=== PATIENT | male | born 1960 | race Caucasian/White ===

== ENCOUNTER → 2024-06-11 | Outpatient (CLI) | payer MEDICARE, MEDICAID, SELFPAY ==
[2024-06-11 12:35] VITALS: PULSE 85; PULSE 86; PULSE 92; PULSE 96; PULSE 97; PULSE 99; O2SAT 92; O2SAT 93; O2SAT 94
--- NOTE | 2024-06-14 12:35 | PCM.PSN.6M ---
PSN 6 Minute Walk Test 6 Minute Walk Test 6 Minute Walk Test: 6 Minute Walk Test PSN:6-Minute Walk Test Start: 06/11/24 12:35 Freq: Status: Active Protocol: [id number] Document 06/11/24 12:35 FERNANDOROWDY (Rec: 06/11/24 12:38 [email or web address] [id number]) 6 Minute Walk Test Date Performed 06/11/24 Time Performed 12:20 Height 5 ft 5 in Weight: 230 lb Weight in Pounds 230.[address]: Phillip Ramirez Assistive device None used: Pre-test Oxygen Delivery Room Air Method Pulse Ox (%) 92 Pulse Rate (60-100 86 beats/min) Dyspnea Galindo Scale ( 0.5 0-10) Exertion Galindo Scale 6 (6-20) 1st minute Oxygen Delivery Room Air Method Pulse Ox (%) 94 Pulse Rate (60-100 92 beats/min) 2nd minute Oxygen Delivery Room Air Method Pulse Ox (%) 93 Pulse Rate (60-100 96 beats/min) 3rd minute Oxygen Delivery Room Air Method Pulse Ox (%) 93 Pulse Rate (60-100 97 beats/min) 4th minute Oxygen Delivery Room Air Method Pulse Ox (%) 93 Pulse Rate (60-100 96 beats/min) 5th minute Oxygen Delivery Room Air Method Pulse Ox (%) 93 Pulse Rate (60-100 96 beats/min) 6th minute Oxygen Delivery Room Air Method Pulse Ox (%) 93 Pulse Rate (60-100 99 beats/min) Dyspnea Galindo Scale ( 2 0-10) Exertion Galindo Scale 13 (6-20) Post-test Oxygen Delivery Room Air Method Pulse Ox (%) 94 Pulse Rate (60-100 85 beats/min) Full Laps Walked 18 Partial Lap, Number 8 of Tiles Walked Total Distance 1070 Walked (ft) Interpretation Interpretation: The patient ambulated 1070 feet over the course of 6 minutes beginning on room air without assistive devices. Pretesting oxygen saturation was noted to be 92% on room air. With ambulation, the ajay oxygen saturation was 93%. There was no significant exertional oxygen desaturation. Recommendations Recommendations: There is no indication for the use of supplemental oxygen at this time.
== END | disposition home or self-care (01) ==
LOC: PSN 12:16
PROVIDERS: PCP Family Medicine; Referring Provider Internal Medicine Critical Care Medicine; Visit Provider Internal Medicine Critical Care Medicine
DX: J44.9 Chronic obstructive pulmonary disease, unspecified (principal)
CPT/HCPCS: 94618

== ENCOUNTER → 2024-07-18 | Outpatient (CLI) | payer MEDICARE, MEDICAID, SELFPAY ==
--- NOTE | 2024-07-18 17:20 | CT_ITS ---
PROCEDURE: LOW DOSE CT LUNG SCREENING 07/18/2024 REASON FOR EXAM: SMOKER TECHNIQUE: Low Dose CT Lung screening without contrast. Coronal and Sagittal reconstruction series were provided. One or more dose reduction techniques were used (e.g., Automated exposure control, adjustment of the mA and/or kV according to patient size, use of iterative reconstruction technique). REFERENCE LINK: Recite Me Lung-RADS RADIATION DOSE SUMMARY: CTDlvol: 3.2 mGy DLP: 116 mGycm COMPARISON: None FINDINGS: Lymph Nodes:No significant lymphadenopathy. Heart and Vasculature:Normal heart size. Mild coronary and aortic valvular calcification. Lungs and Airways: Central airways are clear. There are a few scattered solid pulmonary nodules, including a triangular perifissural nodule in the right lower lobe measuring 5 mm (series 2 image 148) and 3 mm nodule in the right upper lobe (image 103). Pleura:No pleural effusion. Upper Abdomen:Hypodense lesion in the left hepatic lobe measuring 1.8 cm is incompletely imaged. Bones:Unremarkable Soft tissues: Mild bilateral gynecomastia. CT/Low Dose CT Lung Screening IMPRESSION: Lung-RADS Category: 2 BENIGN (BASED ON IMAGING FEATURES OR INDOLENT BEHAVIOR). RECOMMEND 12-MONTH SCREENING LDCT. Other Significant Findings: Hypodense lesion in the left hepatic lobe, incomple tely imaged on this exam. Consider dedicated CT if not previously performed. Reading Location: [id number]
== END | disposition home or self-care (01) ==
LOC: CT 17:08
PROVIDERS: PCP Family Medicine; Referring Provider Nurse Practitioner Acute Care; Visit Provider Nurse Practitioner Acute Care
DX: F17.210 Nicotine dependence, cigarettes, uncomplicated (principal)
CPT/HCPCS: 71271